=== PATIENT | male | born 1975 | race Caucasian/White ===

== ENCOUNTER 2016-12-27 08:02 | Inpatient (IN) | payer OTHER ==
[~2016-12-27] VITALS: Ht 188 cm; Wt 146.5 kg
--- NOTE | ~2016-12-27 | PR ---
[place], [place] PROGRESS NOTE NAME: KASSANDRA JAFFE [facility] #: [id number] UNIT #: [id number] ROOM: 415 DOCTOR: BARRY JAQUEZ MD,FENG BIRTHDATE: [birth year] DOS: 12/31/2016 SUBJECTIVE: The patient has been noted copious amount of sputum expectoration, which he noticed mildly blood tinged. He has been noted without any ongoing acute complaints at this time. He would like to be transferred to another facility. The patient stated that if he has not been transferred, he needs to be discharged home. OBJECTIVE: VITAL SIGNS: Showed normal temperature, this morning has noted 102 degrees Fahrenheit, respiratory rate recorded 20, heart rate of 77, blood pressure 123/80 to 133/84. Pulse oxygen saturation of the patient on room air was noted 97% saturation. HEENT: Examination shows chronic obesity. NECK: Supple. CARDIOVASCULAR: S1, S2 audible. LUNGS: Coarse crackles in the right posterior chest. ABDOMEN: Soft, nontender. LABORATORY DATA: The ESR was noted elevated at 62. The C-reactive protein was also elevated, noted at 26.0. The vancomycin trough level yesterday noted 12.8, which is therapeutic. CMP of the patient this morning noted normal BUN and creatinine. Potassium 3.4. AST elevated at 135, ALT 151 which is a mild elevation. CBC of the patient on 12/31/2016 shows WBC count normal, hemoglobin 13.9, hematocrit 39.7, platelet count was normal. Culture of the sputum, noted final cultures as no bacterial growth from the 24th. The chest x-ray that was done this morning, the patient was seen noted persistent area of consolidation, infiltration noted in the right lower lobe. IMPRESSION: 1. The patient with persistent acute pneumonia with copious sputum expectoration at this time, treated with the antibiotics, negative cultures with bronchial washings, mild hemoptysis which also remains stable. 2. Abnormal liver function test, etiology unclear with chronic obesity as well. PLAN OF TREATMENT: Continue antibiotics, bronchodilators, oxygen supplementation, other plan of management. Bronchoscopy will be needed for this patient for further assessment, but the patient stated that he would like to be discharged to another facility. In the meantime, continue the patient's current treatment, therapy as in progress. Usual care, other supportive plan of management and therapies. [place], [place] PROGRESS NOTE NAME: KASSANDRA JAFFE UNIT #: [id number] ROOM: 415 DOCTOR: FENG HAMMER MD BIRTHDATE: [birth year] FENG REDDY MD CM:PNTRANS [id number] FENG JAQUEZ MD 12/31/16 1218 interface
--- NOTE | ~2016-12-27 | PR ---
[place], [place] PROGRESS NOTE NAME: KASSANDRA JAFFE [facility] #: [id number] UNIT #: [id number] ROOM: 415 DOCTOR: BARRY JAQUEZ MD,FENG BIRTHDATE: [birth year] DOS: 01/01/2017 PULMONARY FOLLOWUP SUBJECTIVE: The patient has been complaining of pain, getting pain medication, coughing has been noted with what appears like vaibhav sputum expectoration. Denies symptoms of chest pain. He has not been transferred to another facility and stated that he will be staying in this hospital at the present time. OBJECTIVE: VITAL SIGNS: Blood pressure was noted as 138/83, respiratory rate 18, heart rate 86, temperature 99.9 degrees Fahrenheit. Pulse oxygen saturation on room air was noted as 96% saturation. HEENT: Examination shows chronic obesity. NECK: Supple. CARDIOVASCULAR: S1, S2 audible. LUNGS: The patient was noted without any wheezing. Crackles remain persistent in the right lower lung. ABDOMEN: Soft, obese, nontender. LABORATORY DATA: The patient's CMP this morning, glucose 101, BUN normal, creatinine were normal, potassium 3.4. AST and ALT still remains elevated, alkaline phosphatase was elevated. CBC today: WBC count normal, hemoglobin 13.4, hematocrit 38.4, platelet count was normal. 15% lymphocytes noted. Ultrasound of the liver completed this morning noted unremarkable ultrasound of the liver and other structures. Previous sputum culture from the were noted as no bacterial growth. Blood cultures were not noted with any bacterial growth. IMPRESSION: Persistent acute pneumonia with infiltration of the lung, currently treated with intravenous antibiotics without any significant improvement noted at the present time and pneumonia but still expectorating vaibhav sputum. PLAN OF MANAGEMENT: Discontinuation of the Rocephin and starting the patient on intravenous Zosyn. Continue the Levaquin for atypical coverage and gram-positive coverage as well. Bronchoscopy was scheduled to be done in the morning, n.p.o. past midnight status will be achieved today for assessment of the current nonresolving pneumonia, currently vaibhav sputum expectoration and hemoptysis. Other supportive plan of management and therapies. Usual care. No other major changes in the treatment need to be done. Monitor the liver function test. The patient's etiology remains unclear. The ultrasound was noted negative. Consider serology for hepatitis as well as part of the assessment. [place], [place] PROGRESS NOTE NAME: KASSANDRA JAFFE UNIT #: [id number] ROOM: 415 DOCTOR: BARRY JAQUEZ MD,FENG BIRTHDATE: [birth year] FENG REDDY MD CM:PNTRANS [id number] FENG JAQUEZ MD 01/01/17 1118 interface
--- NOTE | ~2016-12-27 | CON ---
[place], [place] REPORT OF CONSULTATION NAME: KASSANDRA JAFFE [facility] #: [id number] UNIT #: [id number] ROOM: 415 DOCTOR: BARRY JAQUEZ MDFENG BIRTHDATE: [birth year] DOS: 12/30/2016 PULMONARY CONSULTATION EVALUATION AND MANAGEMENT REASON FOR CONSULTATION: To assess the patient for chest abnormality, pneumonia and other symptoms with possibility of hemoptysis. HISTORY OF PRESENT ILLNESS: A 41-year-old white male who has been known with past history of type 2 diabetes mellitus, history of chronic nicotine dependence and obesity, presented to the Emergency Room as he developed acute symptoms of high-grade fever associated with fever, chills and rigors. The patient was also noted with generalized weakness and fatigue. He later on developed cough, which has been noted to be productive with small amount of blood was noted at times that occurred only yesterday after the hospitalization. However, he has not noted any further episodes of hemoptysis. He does complain of pain, which he described across the chest. The patient reported symptoms of shortness of breath as well as wheezing. REVIEW OF SYSTEMS: CONSTITUTIONAL: The patient noticed symptom of fatigue and tiredness with symptoms of fever and chills. EYES: Denies any burning, redness, tenderness, or earache. CARDIOVASCULAR: Denies anginal pain, palpitations, edema of the lower extremities or syncopal episodes. GASTROINTESTINAL: Denies dysphagia, nausea, vomiting, diarrhea, abdominal pain, hematemesis, melena, or hematochezia. GENITOURINARY: Denies dysuria, suprapubic pain, hematuria or flank pain. MUSCULOSKELETAL: Denies acute joint pain, redness, or tenderness. SKIN: Denies any lesions or rashes. CENTRAL NERVOUS SYSTEM: Denies dizziness, headache, diplopia, syncopal episodes or seizures. Remaining systems were reviewed with the patient, they were noted all negative. PAST MEDICAL HISTORY: 1. Known with history of type 2 diabetes mellitus. 2. Chronic obesity. 3. History of nicotine dependence. 4. Lumbar disk disease. 5. Hypercholesterolemia. 6. Essential hypertension. PAST SURGICAL HISTORY: Lumbar laminectomy in 2012. SOCIAL HISTORY: The patient stated that he is , has 2 children. Smoking was known between half to a pack of cigarettes per day actively since the teens. FAMILY HISTORY: The patient's mother is living, 70 years old without any known medical illnesses. Father at 56 years old from complication related to acute myocardial infarction. [place], [place] REPORT OF CONSULTATION NAME: KASSADNRA JAFFE UNIT #: [id number] ROOM: [facility] DOCTOR: BARRY JAQUEZ MD,FENG BIRTHDATE: [birth year] MEDICATIONS: Current administered medications noted use of Mucinex p.r.n. use, DuoNeb, albuterol sulfate, Lovenox for DVT prophylaxis, ibuprofen, nicotine 21 mg to the skin daily, IV vancomycin, Zithromax, Levaquin and Zosyn. DRUG ALLERGY HISTORY: No known drug allergies. PHYSICAL EXAMINATION: GENERAL: A 41-year-old white male who has been noted diaphoretic at this time, but there was no distress. The patient's height was noted as 6 feet 2 inches, weight of 323 pounds, BMI 41.4. VITAL SIGNS: Which were recorded for the patient showed the temperature noted as up to 103 degree Fahrenheit to normal temperature. Respiratory rate ranges between 18-20. Heart rate of 91-105, blood pressure 131/77 and 157/101. Pulse oxygen saturation recorded on room air was 96% saturation. The intake and output, the patient in the last 24 hours, intake 2060 mL and 2900 mL; negative for balance of more than 800 mL. HEENT: Examination shows head was atraumatic, chronic obesity. NECK: Supple. Severe decreased posterior pharyngeal space. ABDOMEN: Soft. Reduced posterior pharyngeal space was noted with high tongue base and crowding of soft tissue structures. CARDIOVASCULAR: S1, S2 audible without any murmurs. LUNGS: Noted [id number] decreased breath sounds. There were no wheezing or crackles heard at the present time. ABDOMEN: Noted with chronic moderate obesity, bowel sounds present. No tenderness. EXTREMITIES: Shows no edema, clubbing or cyanosis. SKIN: Showed no lesions or rashes. MUSCULOSKELETAL: The patient does not show any acute deformities. LABORATORY DATA: CBC on 12/27/2016 in the Emergency Room: WBC count 14.6, remaining CBC was essentially noted completely normal. Amylase and lipase on 12/27/2016, on admission, was noted normal. Lactic acid 0.8 on admission. CMP of the patient was 722. BUN and creatinine were normal. Remaining LFTs were normal, except protein mildly elevated at 8.3. CBC on 12/28/2016: WBC count 11.3. Remaining CBC normal. BMP of the patient on 12/28/2016, glucose 152, normal BUN and creatinine. Potassium 3.2, phosphorus 1.6. The blood culture for the patient, which were taken in the Emergency Room on 12/27/2016, to assess for the patient showed no bacterial growth. Preliminary findings culture results were pending. CBC of the patient that was done this morning was noted as normal. CMP this morning was noted as normal. Sodium 134. The chest x-ray of the patient which was reviewed, that was done for the patient on admission on 12/27/2016, does not show any acute pulmonary abnormalities. CT scan of the chest, the left lung was noted as clear and the right lung was noted with a large area of consolidation involving the medial subsegment of the right lower lobe with area of consolidation noted with another infiltration noted partially in the right middle lobe medial subsegment as well with alveolar filling. The review of the mediastinal structure, the patient does not show any significant abnormality such as lymphadenopathy, which was noted pathological mild lymphadenopathy noted at the present time. CT scan of the abdomen and pelvis [place], [place] REPORT OF CONSULTATION NAME: KASSANDRA JAFFE [facility] #: [id number] UNIT #: [id number] ROOM: [facility] DOCTOR[facility] [birth year] was also done for this patient, which has been reported by the radiologist yesterday with findings of mild possibility of enteritis. IMPRESSION: 1. The patient has been currently admitted to the hospital noted with height-grade fever with recurrent infection and the pneumonia for the patient, on aspiration with possibility of atypical and atypical organism for community-acquired infection to be considered in the differential diagnosis. 2. Hemoptysis, may be related to underlying pneumonia; however, other etiologies will be considered. 3. The patient with acute sepsis which was noted on admission; at this time, still noted diaphoresis, intermittent temperature elevations as well. 4. Chronic obesity with history of type 2 diabetes mellitus. PLAN OF MANAGEMENT: Workup for the known infectious etiology will be ordered. The patient noted to be on very broad-spectrum intravenous antibiotics. The patient will be continued on the Levaquin and the Zithromax will be discontinued. Continue the IV Zosyn and vancomycin until all the culture results would be available to make further reduction. We will be monitoring the results of urine for streptococcal antigen as well as Legionella antigen. Monitor the signs and symptoms. Monitor the results of the sputum culture as well. Usual care, other supportive therapy, plan of management as well. Additional treatment changes will be done based on progression of the illnesses. Monitoring of the chest x-ray for progression with PA lateral view to assess the current pulmonary infiltration progression. Thanks for allowing me to participate in the care of this patient. FENG REDDY MD CM:CONSTR:REPORT OF CONSULTATION 1105 12/30/16 1231 interface
[~2016-12-27 08:02] MED LIST: ALBUTEROL0.09 MG/A2 INH; CLINDAMYCIN HC300 MG PO; DAYPRO600 M1 PO; FLEXERIL10 MG PO; FLEXERIL5 MG PO; HYDROCODON-ACETAMINO; HYDROCODONE BIT1 T11 PO; KEFLEX500 MG PO; LIDEX0.05% T; LISINOPRIL-HCTZ 10-1; LISINOPRIL/HCTZ1 TA3 PO; MOTRIN800 MG PO; Motrin,Rufen800 MG PO; NEURONTIN100 MG PO; NKHM; NORCO 5-325 TA1 EACH PO; PERCOCET 325 MG1 TA8 PO; PREDNICOT20 MG PO; PREDNISONE20 M1 PO; ROBAXIN750 MG PO; SERTRALINE HYDR50 MG PO; SIMVASTATIN20 MG PO; See Long Drug Name; TRAMADOL HCL50 MG PO; VICODIN 5/500 505 MG PO; VISTARIL25 M1 PO; ZITHROMAX Z PA250 MG PO; ZOCOR20 MG PO; [UNRECOGNIZED DRUG - OTHER] T
[2016-12-27 08:09] VITALS: BP 144/100
[2016-12-27 09:34] LABS: BASO # 0.1 10*3/uL (0.0-0.1); BASO % 0.4 % (0.0-1.0); EOS % 0.2 % (1.0-4.0); HEMATOCRIT 49.7 % (42.0-52.0); HEMOGLOBIN 17.2 g/dl (14.0-18.0); IG # 0.2 10*3/uL (0.0-0.1); LYMPH # 1.2 10*3/uL (1.3-4.4); LYMPH % 7.9 % (27.0-41.0); MEAN CELL VOLUME 89.9 fl (80.0-94.0); MEAN CORPUSCULAR HGB 31.1 pg (27.0-31.0); MEAN CORPUSCULAR HGB CONC 34.6 g/dl (33.0-37.0); MEAN PLATELET VOLUME 9.6 fl (9.6-12.3); MONO # 1.3 10*3/uL (0.1-1.0); MONO % 8.9 % (3.0-9.0); NEUT # 11.9 10*3/uL (2.3-7.9); NEUT % 81.6 % (47.0-73.0); PLATELET COUNT AUTOMATED 154 10*3/uL (130-400); RED BLOOD COUNT 5.53 10*6/uL (4.50-5.90); RED CELL DISTRI WIDTH 12.8 % (0-14.5); WHITE BLOOD COUNT 14.6 10*3/uL (4.8-10.8)
[2016-12-27 09:51] LABS: ALBUMIN 3.8 gm/dl (3.1-4.5); ALKALINE PHOSPHATASE 94 U/L (45-117); BILIRUBIN, TOTAL 0.9 mg/dl (0.2-1.0); BUN 8 mg/dl (7-24); CARBON DIOXIDE 21 mmol/L (21-32); CHLORIDE 106 mmol/L (98-107); EST GLOM FILT AFRICAN AMERICAN > 60 ml/min; GLUCOSE 114 mg/dL (65-99); POTASSIUM 3.5 mmol/L (3.5-5.1); SGOT/AST 23 IU/L (3-35); SGPT/ALT 53 U/L (12-78); SODIUM 136 mmol/L (136-145); TOTAL PROTEIN 8.3 gm/dL (6.4-8.2)
[2016-12-27 10:12] LABS: BILIRUBIN 2+ (NEGATIVE); BLOOD 1+ (NEGATIVE); CLARITY SL CLOUDY (CLEAR); COLOR YELLOW (YELLOW); GLUCOSE NEGATIVE (NEGATIVE); KETONE TRACE (NEGATIVE); LEUKO ESTERASE 1+ (NEGATIVE); NITRITE NEGATIVE (NEGATIVE); PROTEIN 2+ (NEGATIVE)
[2016-12-27 10:21] LABS: WBC 41-50 wbc/hpf (0-5)
[2016-12-27 10:22] LABS: BACTERIA 1+; MUCOUS 2+; URINE REFLEX COMMENT YES (NO)
[2016-12-27 10:57] VITALS: BP 141/84
[2016-12-27 11:29] VITALS: BP 152/85
[2016-12-27 12:00] VITALS: BP 152/85
[2016-12-27 16:00] VITALS: BP 126/60
[2016-12-27 20:00] VITALS: BP 158/74
[2016-12-28] VITALS: BP 160/64
[2016-12-28 04:00] VITALS: BP 158/72
[2016-12-28 05:50] LABS: HEMOGLOBIN A1c 5.7 % (4.8-5.6)
[2016-12-28 05:55] LABS: BASO % 0.3 % (0.0-1.0); HEMATOCRIT 45.1 % (42.0-52.0); HEMOGLOBIN 15.5 g/dl (14.0-18.0); IG # 0.1 10*3/uL (0.0-0.1); LYMPH % 8.5 % (27.0-41.0); MEAN CELL VOLUME 90.9 fl (80.0-94.0); MEAN CORPUSCULAR HGB 31.3 pg (27.0-31.0); MEAN CORPUSCULAR HGB CONC 34.4 g/dl (33.0-37.0); MEAN PLATELET VOLUME 10.1 fl (9.6-12.3); MONO # 0.9 10*3/uL (0.1-1.0); MONO % 7.6 % (3.0-9.0); NEUT # 9.4 10*3/uL (2.3-7.9); NEUT % 82.5 % (47.0-73.0); PLATELET COUNT AUTOMATED 134 10*3/uL (130-400); RED BLOOD COUNT 4.96 10*6/uL (4.50-5.90); WHITE BLOOD COUNT 11.3 10*3/uL (4.8-10.8)
[2016-12-28 06:01] LABS: BUN 7 mg/dl (7-24); CARBON DIOXIDE 24 mmol/L (21-32); CHLORIDE 105 mmol/L (98-107); EST GLOM FILT AFRICAN AMERICAN > 60 ml/min; GLUCOSE 152 mg/dL (65-99); PHOSPHOROUS 1.6 mg/dL (2.5-4.9); POTASSIUM 3.2 mmol/L (3.5-5.1); SODIUM 137 mmol/L (136-145)
[2016-12-28 08:00] VITALS: BP 132/80
[2016-12-28 12:00] VITALS: BP 132/78
[2016-12-28 16:00] VITALS: BP 150/80
[2016-12-28 20:00] VITALS: BP 150/84
[2016-12-29] VITALS: BP 149/64
[2016-12-29 06:20] LABS: HEMATOCRIT 42.9 % (42.0-52.0); HEMOGLOBIN 14.9 g/dl (14.0-18.0); MEAN CELL VOLUME 90.5 fl (80.0-94.0); MEAN CORPUSCULAR HGB 31.4 pg (27.0-31.0); MEAN CORPUSCULAR HGB CONC 34.7 g/dl (33.0-37.0); PLATELET COUNT AUTOMATED 129 10*3/uL (130-400); RED BLOOD COUNT 4.74 10*6/uL (4.50-5.90); RED CELL DISTRI WIDTH 13.1 % (0-14.5); WHITE BLOOD COUNT 10.2 10*3/uL (4.8-10.8)
[2016-12-29 06:51] LABS: BASOPHIL # 0.2 10*3/uL (0-0.1); BASOPHILS 2 % (0-1); LYMPHOCYTE # 0.4 10*3/uL (1.3-4.4); METAMYELOCYTES 1 % (0-0); MONOCYTE # 0.7 10*3/uL (0.1-1.0); NEUTROPHIL # 8.8 10*3/uL (2.3-7.9); NEUTROPHILS 86 % (47-73); TOTAL CELLS COUNTED 100 #CELLS
[2016-12-29 06:52] LABS: PLATELET SUFFICIENCY NORMAL (NORMAL)
[2016-12-29 06:54] LABS: ALBUMIN 2.8 gm/dl (3.1-4.5); ALKALINE PHOSPHATASE 76 U/L (45-117); BILIRUBIN, TOTAL 0.9 mg/dl (0.2-1.0); BUN 8 mg/dl (7-24); CARBON DIOXIDE 22 mmol/L (21-32); CHLORIDE 105 mmol/L (98-107); EST GLOM FILT AFRICAN AMERICAN > 60 ml/min; GLUCOSE 105 mg/dL (65-99); POTASSIUM 3.6 mmol/L (3.5-5.1); SGOT/AST 37 IU/L (3-35); SGPT/ALT 51 U/L (12-78); SODIUM 138 mmol/L (136-145); TOTAL PROTEIN 6.9 gm/dL (6.4-8.2)
[2016-12-29 08:00] VITALS: BP 131/75
[2016-12-29 12:00] VITALS: BP 136/73
[2016-12-29 16:00] VITALS: BP 138/73
[2016-12-29 20:00] VITALS: BP 133/84
[2016-12-30] VITALS: BP 157/101
[2016-12-30 06:07] LABS: ALBUMIN 2.6 gm/dl (3.1-4.5); ALKALINE PHOSPHATASE 75 U/L (45-117); BUN 7 mg/dl (7-24); CARBON DIOXIDE 24 mmol/L (21-32); CHLORIDE 102 mmol/L (98-107); EST GLOM FILT AFRICAN AMERICAN > 60 ml/min; GLUCOSE 119 mg/dL (65-99); POTASSIUM 3.5 mmol/L (3.5-5.1); SGOT/AST 54 IU/L (3-35); SGPT/ALT 75 U/L (12-78); SODIUM 134 mmol/L (136-145); TOTAL PROTEIN 6.5 gm/dL (6.4-8.2)
[2016-12-30 06:33] LABS: HEMATOCRIT 40.6 % (42.0-52.0); MEAN CORPUSCULAR HGB CONC 34.5 g/dl (33.0-37.0); MEAN PLATELET VOLUME 10.5 fl (9.6-12.3); PLATELET COUNT AUTOMATED 130 10*3/uL (130-400); RED BLOOD COUNT 4.51 10*6/uL (4.50-5.90); RED CELL DISTRI WIDTH 13.3 % (0-14.5); WHITE BLOOD COUNT 8.1 10*3/uL (4.8-10.8)
[2016-12-30 07:15] LABS: BASOPHIL # 0.1 10*3/uL (0-0.1); BASOPHILS 1 % (0-1); LYMPHOCYTE # 0.5 10*3/uL (1.3-4.4); MONOCYTE # 0.2 10*3/uL (0.1-1.0); MYELOCYTES 1 % (0-0); NEUTROPHIL # 7.2 10*3/uL (2.3-7.9); NEUTROPHILS 89 % (47-73); TOTAL CELLS COUNTED 100 #CELLS
[2016-12-30 07:16] LABS: MORPHOLOGY COMMENT B; PLATELET SUFFICIENCY NORMAL (NORMAL)
[2016-12-30 08:00] VITALS: BP 131/77
[2016-12-30 16:00] VITALS: BP 110/51
[2016-12-30 20:00] VITALS: BP 109/64; BP 155/89
[2016-12-31] VITALS: BP 133/84
[2016-12-31 05:57] LABS: HEMATOCRIT 39.7 % (42.0-52.0); HEMOGLOBIN 13.9 g/dl (14.0-18.0); MEAN CELL VOLUME 90.6 fl (80.0-94.0); MEAN CORPUSCULAR HGB 31.7 pg (27.0-31.0); MEAN PLATELET VOLUME 9.4 fl (9.6-12.3); PLATELET COUNT AUTOMATED 131 10*3/uL (130-400); RED BLOOD COUNT 4.38 10*6/uL (4.50-5.90); RED CELL DISTRI WIDTH 13.3 % (0-14.5); WHITE BLOOD COUNT 6.2 10*3/uL (4.8-10.8)
[2016-12-31 06:31] LABS: ALBUMIN 2.5 gm/dl (3.1-4.5); BUN 7 mg/dl (7-24); CARBON DIOXIDE 25 mmol/L (21-32); CHLORIDE 106 mmol/L (98-107); GLUCOSE 101 mg/dL (65-99); POTASSIUM 3.4 mmol/L (3.5-5.1); SODIUM 140 mmol/L (136-145)
[2016-12-31 06:35] LABS: ALKALINE PHOSPHATASE 81 U/L (45-117); BILIRUBIN, TOTAL 0.8 mg/dl (0.2-1.0); EST GLOM FILT AFRICAN AMERICAN > 60 ml/min; SGOT/AST 135 IU/L (3-35); SGPT/ALT 151 U/L (12-78); TOTAL PROTEIN 6.4 gm/dL (6.4-8.2)
[2016-12-31 07:06] LABS: EOSINOPHIL # 0.1 10*3/uL (0-0.4); EOSINOPHILS 1 % (1-4); LYMPHOCYTE # 0.6 10*3/uL (1.3-4.4); METAMYELOCYTES 3 % (0-0); MONOCYTE # 0.2 10*3/uL (0.1-1.0); NEUTROPHIL # 5.1 10*3/uL (2.3-7.9); NEUTROPHILS 82 % (47-73); PLATELET SUFFICIENCY NORMAL (NORMAL); TOTAL CELLS COUNTED 100 #CELLS
[2016-12-31 07:07] LABS: IMMUNOGLOBULIN IgE 002170 431 IU/mL (0-100); RHEUMATOID ARTHRITIS FACTOR 14.4 IU/mL (0.0-13.9)
[2016-12-31 08:00] VITALS: BP 123/80
[2016-12-31 12:00] VITALS: BP 138/73
[2016-12-31 14:07] LABS: ANGIOTENSIN-CONVERTING ENZYME 45 U/L (14-82)
[2016-12-31 15:09] LABS: ORGANISM ID Not indicated. (.); SPECIMEN SOURCE Urine (.); STREPTOCOCCUS PNEUMONIAE AG Negative (Negative)
[2016-12-31 16:00] VITALS: BP 133/73
[2016-12-31 20:00] VITALS: BP 133/73; BP 139/68
[2017-01-01] VITALS: BP 135/65; BP 145/76
[2017-01-01 01:08] LABS: IGG SUBCLASS 1 395 mg/dL (248-810); IGG SUBCLASS 2 300 mg/dL (130-555); IGG SUBCLASS 3 33 mg/dL (15-102); IGG SUBCLASS 4 11 mg/dL (2-96)
[2017-01-01 04:00] VITALS: BP 135/70
[2017-01-01 05:48] LABS: ALBUMIN 2.5 gm/dl (3.1-4.5); ALKALINE PHOSPHATASE 134 U/L (45-117); BILIRUBIN, TOTAL 0.6 mg/dl (0.2-1.0); BUN 6 mg/dl (7-24); CARBON DIOXIDE 25 mmol/L (21-32); CHLORIDE 104 mmol/L (98-107); EST GLOM FILT AFRICAN AMERICAN > 60 ml/min; GLUCOSE 101 mg/dL (65-99); MAGNESIUM 1.8 mg/dL (1.5-2.1); PHOSPHOROUS 3.8 mg/dL (2.5-4.9); POTASSIUM 3.4 mmol/L (3.5-5.1); SGOT/AST 422 IU/L (3-35); SGPT/ALT 490 U/L (12-78); SODIUM 139 mmol/L (136-145); TOTAL PROTEIN 6.4 gm/dL (6.4-8.2)
[2017-01-01 06:07] LABS: HEMATOCRIT 38.4 % (42.0-52.0); HEMOGLOBIN 13.4 g/dl (14.0-18.0); MEAN CELL VOLUME 90.8 fl (80.0-94.0); MEAN CORPUSCULAR HGB 31.7 pg (27.0-31.0); MEAN CORPUSCULAR HGB CONC 34.9 g/dl (33.0-37.0); MEAN PLATELET VOLUME 9.4 fl (9.6-12.3); RED BLOOD COUNT 4.23 10*6/uL (4.50-5.90); RED CELL DISTRI WIDTH 13.4 % (0-14.5); WHITE BLOOD COUNT 6.2 10*3/uL (4.8-10.8)
[2017-01-01 06:14] LABS: PLATELET COUNT AUTOMATED 171 10*3/uL (130-400)
[2017-01-01 07:03] LABS: LYMPHOCYTE # 0.9 10*3/uL (1.3-4.4); METAMYELOCYTES 3 % (0-0); MONOCYTE # 0.6 10*3/uL (0.1-1.0); NEUTROPHIL # 4.5 10*3/uL (2.3-7.9); NEUTROPHILS 73 % (47-73); TOTAL CELLS COUNTED 100 #CELLS
[2017-01-01 07:04] LABS: PLATELET SUFFICIENCY NORMAL (NORMAL)
[2017-01-01 08:00] VITALS: BP 138/83
[2017-01-01 12:00] VITALS: BP 149/73
[2017-01-01 13:27] LABS: INTERNATIONAL NORM RATIO 1.1 (2.0-3.5); PROTHROMBIN TIME 11.5 SECONDS (9.0-12.4)
[2017-01-01] MEDS ORDERED: D-1000 185 MG-11 TAB PO (14:36)
[2017-01-01 16:00] VITALS: BP 152/84
[2017-01-01 20:00] VITALS: BP 146/89
[2017-01-01 20:08] LABS: URINE AMPHETAMINES < 1000 (1000ng/ml); URINE BARBITURATES < 200 (200ng/ml); URINE COCAINE < 300 (300ng/ml)
[2017-01-02 07:07] LABS: HEPATITIS C VIRUS ANTIBODY <0.1 s/co (0.0-0.9)
[2017-01-02 07:07] LABS: LEGIONELLA URINARY ANTIGEN Positive (Negative)
== END 2017-01-02 01:15 | disposition short-term general hospital (02) | DRG 871 ==
LOC: ED 08:02 → EDHOLD 10:28 → 4E 10:28
PROVIDERS: Emergency Medicine; Family Medicine; Hospitalist; Internal Medicine; Internal Medicine Critical Care Medicine; Student in an Organized Health Care Education/Training Program
DX: A41.9 Sepsis, unspecified organism (principal); E43 Unspecified severe protein-calorie malnutrition; A48.1 Legionnaires' disease; K76.0 Fatty (change of) liver, not elsewhere classified; K72.90 Hepatic failure, unspecified without coma; N39.0 Urinary tract infection, site not specified; E87.1 Hypo-osmolality and hyponatremia; R04.2 Hemoptysis; Z68.41 Body mass index [BMI] 40.0-44.9, adult; E66.9 Obesity, unspecified; M54.30 Sciatica, unspecified side; E11.9 Type 2 diabetes mellitus without complications; E87.6 Hypokalemia; R74.0 Nonspecific elevation of levels of transaminase and lactic acid dehydrogenase [LDH]; E55.9 Vitamin D deficiency, unspecified; F17.210 Nicotine dependence, cigarettes, uncomplicated; R65.20 Severe sepsis without septic shock; R31.9 Hematuria, unspecified; Z82.49 Family history of ischemic heart disease and other diseases of the circulatory system; Z98.890 Other specified postprocedural states; Z83.3 Family history of diabetes mellitus

== ENCOUNTER 2018-02-17 22:09 | Emergency (ER) | payer OTHER ==
[~2018-02-17] VITALS: Ht 187.9 cm; Wt 154.2 kg
[~2018-02-17 22:09] MED LIST changes: +D-1000 185 MG-11 TAB PO
[2018-02-17] MEDS ORDERED: AUGMENTIN 875875 MG PO (23:25)
[2018-02-17] MEDS ORDERED: FLONASE ALLERG9.9 ML NAS (23:25)
== END 2018-02-17 23:43 | disposition home or self-care (01) ==
LOC: ED 22:09
DX: J01.90 Acute sinusitis, unspecified (principal); Z87.891 Personal history of nicotine dependence